=== PATIENT | female | born 1995 | race Caucasian/White ===

== ENCOUNTER 2018-03-24 20:24 | Emergency (ER) | payer BC, OTHER ==
--- NOTE | 2018-03-24 22:16 | ER Document Report ---
ED Medical Screen (RME) - General Chief Complaint: Abdominal Pain Stated Complaint: SIDE PAIN Time Seen by Provider: 03/24/18 22:14 Notes: Patient is a 23-year-old female presents to the emergency department complaining of generalized left pelvic pain. Patient states her last menstrual period was on February 27, 2018. States she took an at-home test and it was positive yesterday. Patient states today she started with left pelvic pain but denies any vaginal discharge or bleeding. Patient states she has and has had her right fallopian tube removed after an ectopic . Past medical history: Ectopic Medications: None Allergies: None GENERAL: Alert, interacts well. No acute distress. ABDOMEN: Soft, non-tender. Non-distended. Bowel sounds present in all 4 quadrants. Generalized left pelvic pain upon palpation no CVA tenderness bilaterally. I have greeted and performed a rapid initial assessment of this patient. A comprehensive ED assessment and evaluation of the patient, analysis of test resu lts and completion of the medical decision making process will be conducted by additional ED providers. TRAVEL OUTSIDE OF THE [place] IN LAST 30 DAYS: No - Related Data Allergies/Adverse Reactions: No Known Allergies Allergy (Unverified 03/24/18 20:37) Physical Exam - Vital signs Vitals: Temp Pulse Resp BP Pulse Ox 98.9 F 83 16 113/63 100 03/24/18 20:53 03/24/18 20:53 03/24/18 20:53 03/24/18 20:53 03/24/18 20:53 Course - Vital Signs Vital signs: Temp Pulse Resp BP Pulse Ox 98.9 F 83 16 113/63 100 03/24/18 20:53 03/24/18 20:53 03/24/18 20:53 03/24/18 20:53 03/24/18 20:53
[2018-03-24 22:51] LABS: APPEARANCE,URINE CLEAR; BILIRUBIN,URINE NEGATIVE (NEGATIVE); COLOR,URINE YELLOW; GLUCOSE, URINE NEGATIVE (NEGATIVE); KETONES,URINE NEGATIVE (NEGATIVE); LEUKOCYTE ESTERASE,URINE NEGATIVE (NEGATIVE); NITRITE,URINE NEGATIVE (NEGATIVE); PROTEIN,URINE NEGATIVE (NEGATIVE); UROBILINOGEN,URINE NEGATIVE mg/dL (<2.0)
--- NOTE | 2018-03-25 00:29 | RADIOLOGY REPORT (SQ) ---
EXAM DESCRIPTION: US TRANSVAGINAL COMPLETED DATE/TME: 03/24/2018 22:14 CLINICAL HISTORY: 23 years, Female, , left pelvic pain COMPARISON: None. TECHNIQUE: LIMITATIONS: None. FINDINGS: No IUP. There is a small amount of free fluid in the cul-de-sac. There is a 2.1 cm complex lesion in the left ovary, most likely a hemorrhagic corpus luteum cyst. The right ovary is unremarkable. IMPRESSION: No IUP. Possibilities are very early IUP and ectopic . Clinical correlation and follow-up are needed. 2.1 cm probable left ovarian corpus luteum cyst. copyright 2010 [employer]- All Rights Reserved
--- NOTE | 2018-03-25 02:14 | ER Document Report ---
ED General - General Chief Complaint: Abdominal Pain Stated Complaint: SIDE PAIN Time Seen by Provider: 03/24/18 22:14 TRAVEL OUTSIDE OF THE [place] IN LAST 30 DAYS: No - HPI Patient complains to provider of: Abdominal pain Notes: Patient presents today with abdominal pain left lower quadrant left adnexal region patient with a history of ectopic. Patient was seen in triage area notes provided below atient is a 23-year-old female presents to the emergency department complaining of generalized left pelvic pain. Patient states her last menstrual period was on February 27, 2018. States she took an at-home test and it was positive yesterday. Patient states today she started with left pelvic pain but denies any vaginal discharge or bleeding. Patient states she has and has had her right fallopian tube removed after an ectopic . Past medical history: Ectopic Medications: None Allergies: None Patient upon my evaluation is resting comfortably. Patient denies any fever chills vomiting diarrhea. States slight nausea. Patient denies any syncopal episodes feeling dizzy lightheaded. Denies any vaginal discharge vaginal bleeding - Related Data Allergies/Adverse Reactions: No Known Allergies Allergy (Unverified 03/24/18 20:37) Past Medical History - Social History Smoking Status: Never Smoker Family History: Reviewed & Not Pertinent Patient has suicidal ideation: No Patient has homicidal ideation: No Renal/ Medical History: Denies: Hx Peritoneal Dialysis Past Surgical History: Reports: Hx Gynecologic Surgery - R tube removed Review of Systems - Review of Systems Constitutional: No symptoms reported EENT: No symptoms reported Cardiovascular: No symptoms reported Respiratory: No symptoms reported Gastrointestinal: Abdominal pain Genitourinary: No symptoms reported Female Genitourinary: No symptoms reported Musculoskeletal: No symptoms reported Skin: No symptoms reported Hematologic/Lymphatic: No symptoms reported Neurological/Psychological: No symptoms reported -: Yes All other systems reviewed and negative Physical Exam - Vital signs Vitals: Temp Pulse Resp BP Pulse Ox 98.9 F 83 16 113/63 100 03/24/18 20:53 03/24/18 20:53 03/24/18 20:53 03/24/18 20:53 03/24/18 20:53 Interpretation: Normal - General General appearance: Appears well, Alert - HEENT Head: Normocephalic, Atraumatic Eyes: Normal Pupils: PERRL - Respiratory Respiratory status: No respiratory distress Chest status: Nontender Breath sounds: Normal Chest palpation: Normal - Cardiovascular Rhythm: Regular Heart sounds: Normal auscultation Murmur: No - Abdominal Inspection: Normal Distension: No distension Bowel sounds: Normal Tenderness: Nontender Organomegaly: No organomegaly - Back Back: Normal, Nontender - Extremities General upper extremity: Normal inspection, Nontender, Normal color, Normal ROM, Normal temperature General lower extremity: Normal inspection, Nontender, Normal color, Normal ROM, Normal temperature, Normal weight bearing. No: Adis's sign - Neurological Neuro grossly intact: Yes Cognition: Normal Orientation: AAOx4 Helen Coma Scale Eye Opening: Spontaneous Raphine Coma Scale Verbal: Oriented Helen Coma Scale Motor: Obeys Commands Raphine Coma Scale Total: 15 Speech: Normal Motor strength normal: LUE, RUE, LLE, RLE Sensory: Normal - Psychological Associated symptoms: Normal affect, Normal mood - Skin Skin Temperature: Warm Skin Moisture: Dry Skin Color: Normal Course - Re-evaluation Re-evalutation: 03/25/18 04:[address] Hughes on-call for SIGN PAINTER APPRENTICE recommend follow-up with a mental health care clinic. A order for repeat beta-hCG in 48 hours was given to the patient. Patient was given instructions on how to obtain this here at [facility]. Patient also given ectopic precautions ultrasound does show a left cyst. Patient states understanding of her laboratory findings ultrasound findings and the need for follow-up. - Vital Signs Vital signs: Temp Pulse Resp BP Pulse Ox 98.3 F 87 18 102/56 L 100 03/25/18 02:33 03/25/18 02:33 03/25/18 02:33 03/25/18 02:33 03/25/18 02:33 - Laboratory Laboratory results interpreted by me: 03/24/18 03/24/18 22:20 23:08 Beta HCG, Quant 46.13 H Urine HCG, Qual POSITIVE H Discharge - Discharge Clinical Impression: Abdominal pain during Qualifiers: Trimester: first trimester Qualified Code(s): O26.891 - Other specified related conditions, first trimester Condition: Fair Disposition: HOME, SELF-CARE Instructions: Abdominal Pain ([facility]), Ectopic Precaution ([facility]) Additional Instructions: At this time your laboratory studies show that you are your ultrasound shows a cyst on the left ovary. Your beta hCG levels are too low to see a normal and also to see an ectopic. We will need to continue to follow your beta hCG levels Please continue to take vitamins. sHe may take Reglan as prescribed for any nausea or vomiting that she may have. Please look at the information below for [id number] medications that she can take for nausea and vomiting. I discussed your case today with Dr. Hughes SIGN PAINTER APPRENTICE. Please call the [facility] clinic tomorrow please inform them that you were seen in the ER and that we are concern for a possible ectopic Dr. Hughes request that you follow-up in their office. Please review discharge instructions carefully please return to the ER immediately if your pain increases or if you feel lightheaded or dizzy or pass out. You have been seen for vomiting during . You should continue to drink plenty of water and consider taking a solution such as Pedialyte if your having difficulty eating food. Please return if you become unable to drink any fluids for more than 12 hours, urinate less than twice a day, pass out, or have any other symptoms that are concerning to you. For nausea and vomiting during I recomment: Start with 10-12.5 mg of pyridoxine (vitamin B6) three times a day for 2 days. If not fully effective, Increase to 12.5 mg of pyridoxine four times a day for 2 days. If not fully effective, Increase to 25 mg of pyridoxine three times a day for 2 days. If not fully effective, Continue 25 mg pyridoxine 3 times a day, and add 12.5 mg of doxylamine before bedtime each day for 2 days. If not fully effective, Continue 25 mg pyridoxine 3 times a day, and take 12.5 mg of doxylamine twice a day. If not fully effective, Continue 25 mg pyridoxine 3 times a day, and take 12.5 mg of doxylamine three times a day. If not fully effective, Continue 25 mg pyridoxine 3 times a day, and 12.5 mg of doxylamine 3 times a day, while adding Emetrol, one to two tablespoons (15-30 cc) taken once or twice a day as needed. (Emetrol is an [id number] mixture of sugar syrups and phosphoric acid [phosphorylated carbohydrate solution]) that acts by soothing the actual wall of the gastrointestinal tract). If not fully effective, Consult with your doctor. Prescriptions: Metoclopramide HCl [Reglan] 5 mg PO Q6 #30 tablet Prenat 115/Iron Fum/Folic/Dss [ 19 Tablet] 1 each PO DAILY #30 tablet Forms: Follow-Up Laboratory Testing
[2018-03-25 02:33] VITALS: BP 102/56
== END 2018-03-25 02:34 | disposition home or self-care (01) ==
LOC: ER 20:24
DX: O34.81 Maternal care for other abnormalities of pelvic organs, first trimester (principal); N94.89 Other specified conditions associated with female genital organs and menstrual cycle; O26.891 Other specified pregnancy related conditions, first trimester; R10.32 Left lower quadrant pain; Z3A.01 Less than 8 weeks gestation of pregnancy; Z87.59 Personal history of other complications of pregnancy, childbirth and the puerperium; Z90.79 Acquired absence of other genital organ(s)
CPT/HCPCS: 36415; 76817; 81001; 81025; 84702; 93976; 99284

== ENCOUNTER → 2018-03-27 | Outpatient (CLI) | payer OTHER | LOC: LAB 09:31 | PROVIDERS: ATTEND Emergency Medicine | DX: O26.899 Other specified pregnancy related conditions, unspecified trimester (principal); R10.9 Unspecified abdominal pain; Z3A.00 Weeks of gestation of pregnancy not specified | CPT/HCPCS: 36415; 84702 ==

== ENCOUNTER → 2018-03-30 | Outpatient (CLI) | payer BC, OTHER | LOC: LAB 11:12 | PROVIDERS: ATTEND Obstetrics & Gynecology | DX: O20.0 Threatened abortion (principal) | CPT/HCPCS: 36415; 84702 ==